=== PATIENT | male | born 1990 | race Caucasian/White ===

== ENCOUNTER 2025-02-23 23:12 | Emergency (ER) | payer SELFPAY ==
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
[2025-02-23 23:26] VITALS: BP 126/82; PULSE 75; RESP 16; TEMP 36.8; O2SAT 96; BMI 26.6
[2025-02-23 23:35] VITALS: RESP 18
[2025-02-23] MEDS: oxyCODONE-APAP 5-325 mg Tablet 1 TAB PO (23:35)
[2025-02-23] MEDS: tetanus-dipt-pertussis 0.5 mL SDV IM (23:35)
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
[2025-02-24 00:11] VITALS: BP 114/84; PULSE 85; RESP 14; O2SAT 98
== END 2025-02-24 00:13 | disposition home or self-care (01) ==
PROVIDERS: Emergency Provider Emergency Medicine
DX: S71.142A Puncture wound with foreign body, left thigh, initial encounter (principal); W45.8XXA Other foreign body or object entering through skin, initial encounter
CPT/HCPCS: 73552; 73590; 90715; 99284; J9999